=== PATIENT | male | born 1990 | race African-American/Black ===

== ENCOUNTER 2017-12-11 15:31 | Emergency (ER) | payer MEDICAID ==
--- NOTE | 2017-12-11 16:16 | EDPHY ---
H & P Smoking Status: Unknown if ever smoked Time Seen by Provider: 12/11/17 15:46 HPI/ROS: CHIEF COMPLAINT: Bipolar, off medications HISTORY OF PRESENT ILLNESS: 27-year-old male presents to the emergency department the history of bipolar on M1 hold. He states that he has been off of his medications. He apparently was recently hospitalized at [place] and at the time was only taking Prozac but was supposed to be taking Zyprexa and hydroxyzine as well. He denies suicidal or homicidal ideation. Denies auditory or visual hallucinations. No fevers or chills. The patient states that he wants to get help. He states that he wants to get back on his medications. He thinks he needs admission. He denies substance abuse. REVIEW OF SYSTEMS: Constitutional: No fever, no chills. Eyes: No double or blurry vision. ENT: No sore throat. Respiratory: No cough, no shortness of breath. Cardiac: No chest pain. Gastrointestinal: No abdominal pain, vomiting or diarrhea. Genitourinary: No dysuria. Musculoskeletal: No neck or back pain. Skin: No rashes. Neurological: No headache. (Gisel aWyne) Past Medical/Surgical History: Bipolar, noncompliant with medications (Gisel Wayne) Social History: Homeless (Gisel Wayne) Physical Exam: General Appearance: Alert, no distress. Vital signs are stable. No trauma to his head. Afebrile. Eyes: Pupils equal and round. Extraocular motions are all intact. ENT: Mouth: Mucous membranes moist. Respiratory: No wheezing, rhonchi, or rales, lungs are clear to auscultation. Cardiovascular: Regular rate and rhythm. Gastrointestinal: Abdomen is soft and nontender, no masses, no rebound or guarding, bowel sounds normal. Neurological: Uncooperative, cannot determine. Skin: Warm and dry, no rashes. Musculoskeletal: Nontender to palpate along the cervical, thoracic or lumbar spine. Neck is supple. Extremities: Full range of motion and no peripheral edema. Psychiatric: Mildly agitated. (Gisel Wayne) Constitutional: Initial Vital Signs Temperature (C) 36.8 C 12/11/17 15:39 Heart Rate 71 12/11/17 15:39 Respiratory Rate 16 12/11/17 15:39 Blood Pressure 129/96 H 12/11/17 15:39 O2 Sat (%) 98 12/11/17 15:39 O2 Delivery Mode Room Air Allergies/Adverse Reactions: No Known Allergies Allergy (Unverified 01/24/16 23:53) Home Medications: Medication Instructions Recorded [place] Carbonate [[place] 600 mg PO BID #60 cap 03/07/16 Carbonate 600 mg cap (*)] [place] Carbonate [[place] 150 mg PO DAILY #30 tab 03/07/16 Carbonate Tab 300 mg (*)] Melatonin [Melatonin 3 MG (*)] 3 mg PO HS #30 tab 03/07/16 Paliperidone [Invega 3mg ER (*)] 9 mg PO DAILY #30 tab.er 03/07/16 Zolpidem Tartrate [Ambien 5MG (*)] 10 mg PO HS PRN #30 tab 03/07/16 clonazePAM [Klonopin (*)] 0.5 mg PO TID PRN #30 tab 03/07/16 Unobtainable 06/14/16 Medical Decision Making ED Course/Re-evaluation: 27-year-old male with a known history of bipolar has been noncompliant in off of his medications. The patient will be medically cleared and will require mental health evaluation. The patient is on an M1 hold. (Gisel Wayne) Differential Diagnosis: Depression including functional and major depression, situational depression, medication side effect, drugs and alcohol abuse. (Gisel Wayne) Other Provider: I assumed care of the patient at 8:00 p.m. pending psychiatric disposition. I spoke with the mental health automatic chief at 9:15 p.m.. They are looking for psychiatric placement. The patient is amenable to restarting lithium. The patient will be started on 300 mg four times daily. His 1st dose has been ordered in the emergency department. The patient will be turned over to Dr. Parra at shift change pending psychiatric disposition. (Valdez De Anda) 7:00 a.m.- The patient was stable throughout the night. He is been evaluated and is awaiting placement. The case is signed out to the oncoming provider Dr. Romano. (Oksana Parra) The patient's care was transferred to [facility] at 7:00 a.m.. He has not yet been evaluated. Nursing staff came to me it 845 and tells me that he is pacing in screaming and not cooperating. He refused his exam. They are requesting sedation. I will treat with IM Haldol and Ativan. 12:00 p.m. the patient has been evaluated and accepted at [facility] by Dr. Geller. Transfer paperwork completed. (Matias Romano) The patient was evaluated and managed by the Physician Glass Blowing Lathe Operator. I discussed the patient's presentation and course with the midlevel provider with them and agree with the evaluation. My co-signature indicates that I have reviewed this chart and I agree with the findings and plan of care as documented. I am the secondary supervising physician. Patient's care was assumed by Dr. Willy De Anda at 8:00 p.m. (Marisol Krueger) Care Turn Over: Care will be turned over to Dr. Marisol Krueger for disposition and plan. (Gisel Wayne) - Data Points Laboratory Results: Laboratory Results 12/11/17 16:18 12/11/17 16:07 Medications Given: Discontinued Medications [place] Carbonate ([place] Carbonate) 300 mg PO TID JEREMY Stop: 06/09/18 21:59 Last Admin: 12/12/17 08:41 Dose: Not Given Lorazepam (Ativan) 2 mg PO ONCE ONE Stop: 12/12/17 08:50 Last Admin: 12/12/17 08:55 Dose: 2 mg Lorazepam (Ativan) 2 mg PO EDNOW ONE Stop: 12/12/17 12:27 Last Admin: 12/12/17 13:13 Dose: 2 mg Departure - Departure Disposition: Other Psych, Not [facility] Clinical Impression: Bipolar 1 disorder, Noncompliance with medications Condition: Good Referrals: Patient,NotPresent [Unknown] - As per Instructions
[2017-12-11 17:51] LABS: PLATELET COUNT 220 10^3/uL (150-400)
[2017-12-11] MEDS: LITHIUM CARBONATE 300 MG TAB PO SCH (22:00)
[2017-12-12] MEDS: LITHIUM CARBONATE 300 MG TAB PO SCH (08:41)
[2017-12-12] MEDS ORDERED: LORazepam 2 MG/ML INJ IM ONE (08:45)
[2017-12-12] MEDS ORDERED: HALOPERIDOL LACT 5 MG/ML INJ IM ONE (08:46)
[2017-12-12] MEDS ORDERED: LORazepam 1 MG TAB PO ONE ×2 (08:49→12:26)
[2017-12-12 13:48] VITALS: BP 108/76
== END 2017-12-12 13:40 ==
LOC: EDUNIT#
DX: F31.9 Bipolar disorder, unspecified (principal); Z91.14 Patient's other noncompliance with medication regimen
CPT/HCPCS: 80305; G0480